=== PATIENT | female | born 1970 | race Caucasian/White ===

== ENCOUNTER 2016-10-29 07:57 | Emergency (ER) | payer OTHER ==
[2016-10-29] MEDS ORDERED: CEPHALEXIN 250 MG CAPSULE PO STA (08:47)
--- NOTE | 2016-10-29 08:49 | ED Physician Documentation ---
PD HPI UPPER EXT INJURY - Stated complaint Stated Complaint: R PALM BLISTER,RADIATING PAIN UP R ARM - Chief complaint Chief Complaint: Ext Problem - History obtained from History obtained from: Patient - History of Present Illness Location: Right, Hand Type of injury: Other (unknown) Where injury occurred: Home Timing - onset: How many days ago (4) Timing - details: Gradual onset Worsened by: Moving, Palpating Associated symptoms: Swelling, Discolored Similar symptoms before: Has not had sx before - Additonal information Additional information: The patient is a 46-year-old female who presents with swelling, blister on the palm of her right hand at the thenar eminence. It started 4 days ago after working in her garden. She has unroofed the blister, but presents now because of continued pain and swelling, and right axillary adenopathy. She is right- hand dominant. She denies fever, cough or shortness of breath. She denies history of similar symptoms in the past. Her vaccinations are up-to-date. Past history is significant for fibromyalgia. Review of Systems Constitutional: denies: Fever Nose: denies: Congestion Throat: denies: Sore throat Cardiac: denies: Chest pain / pressure Respiratory: denies: Dyspnea, Cough GI: denies: Abdominal Pain, Nausea, Vomiting Skin: reports: Other (Swollen, tender, blistered area right palm.) Neurologic: denies: Focal weakness, Numbness, Headache PD PAST MEDICAL HISTORY - Past Medical History Past Medical History: Yes Cardiovascular: None Respiratory: None Neuro: None Endocrine/Autoimmune: None Musculoskeletal: Fibromyalgia - Present Medications Home Medications: Ambulatory Orders Medication Instructions Recorded Confirmed Cephalexin 500 mg PO TID #20 tablet 10/29/16 - Allergies Allergies/Adverse Reactions: Allergies Allergy/AdvReac Type Severity Reaction Status Date / Time latex Allergy Hives Verified 10/29/16 08:11 Penicillins Allergy Hives Verified 10/29/16 08:11 Sulfa (Sulfonamide Allergy Edema Verified 10/29/16 08:11 Antibiotics) gluten AdvReac Nausea Verified 10/29/16 08:11 lactase [From Dairy Aid] AdvReac Nausea Verified 10/29/16 08:11 lactose AdvReac Nausea Verified 10/29/16 08:11 - Social History Does the pt smoke?: No Smoking Status: Never smoker PD ED PE NORMAL - Vitals Vital signs reviewed: Yes (Normal) - General General: Alert and oriented X 3, Well developed/nourished - HEENT HEENT: Atraumatic - Cardiac Cardiac: RRR, No murmur - Respiratory Respiratory: No respiratory distress, Clear bilaterally - Abdomen Abdomen: Soft, Non tender - Derm Derm: No rash - Extremities Extremities: Other (There is a 1 cm diameter area of swelling with faint erythema on the palmar side of the right hand, over the thenar eminence. There is a central blister that has been unroofed. There is associated tenderness to palpation. There is no lymphangitic streaking. Right axillary lymph nodes are mildly enlarged, and mildly tender to palpation.) - Neuro Neuro: Alert and oriented X 3, No motor deficit, No sensory deficit Results - Vitals Vitals: Vital Signs - 24 hr // 08:03 Temperature 36.5 C Heart Rate 58 L Respiratory 16 Rate Blood Pressure 121/66 O2 Saturation 100 Oxygen O2 Source Room air PD MEDICAL DECISION MAKING - ED course Complexity details: considered differential, d/w patient, d/w family ED course: The patient's presentation is most consistent with cellulitis of the right hand. It is uncertain the initial cause of her injury. It may have been a thorn that penetrated her skin, or it may have been nettle blister that became secondarily infected. There is no evidence of foreign body currently. Treatment in the emergency department included administration of cephalexin 500 mg orally. She is being discharged with prescription for cephalexin. She will take probiotic while on the antibiotic therapy. I discussed with her the expected course of injury, treatment and outpatient follow-up, as well as potentially worrisome signs or symptoms that should prompt reevaluation in the emergency department. Departure - Departure Disposition: 01 Home, Self Care Clinical Impression: Cellulitis Qualifiers: Site of cellulitis: extremity Site of cellulitis of extremity: upper extremity Laterality: right Qualified Code(s): L03.113 - Cellulitis of right upper limb Condition: Stable Instructions: ED Infec Skin Cellulitis Follow-Up: ROMAN Weber [Provider Group] Prescriptions: Cephalexin 500 mg PO TID #20 tablet Comments: Keep your right hand elevated as much of the time as possible. Take cephalexin 3 times daily as prescribed. Take probiotic while on antibiotic therapy. Follow-up with primary physician within 1 week. Call to schedule appointment. Return to the emergency department if you develop increasing redness, swelling, or tenderness of the infected site, or otherwise worsening symptoms.
[2016-10-29] MEDS ORDERED: CEPHALEXIN 250 MG CAPSULE PO ONE (08:53)
[2016-10-29 09:23] VITALS: BP 128/76
== END 2016-10-29 09:24 | disposition home or self-care (01) ==
LOC: ED 07:57
DX: L03.113 Cellulitis of right upper limb (principal)
CPT/HCPCS: 99283; A9270

== ENCOUNTER 2016-10-31 00:43 | Emergency (ER) | payer OTHER ==
--- NOTE | 2016-10-31 00:58 | ED Physician Documentation ---
PD HPI UPPER EXT INJURY - Stated complaint Stated Complaint: RT HAND WOUND,PAIN - History obtained from History obtained from: Patient - History of Present Illness Location: Right, Hand (thenar area) Type of injury: Other (started with red spot and then it got bigger with blistering and is very painful. Seen in ED 2 days ago with Rx for Keflex, but is getting slightly larger. Mild drainage. Had been doing some gardening, but not aware of abrasion/lac per se.). No: Laceration, Puncture wound Timing - onset: How many days ago (few) Timing - duration: Days (few) Timing - details: Gradual onset, Still present Associated symptoms: Swelling. No: Weakness, Numbness, Tingling Similar symptoms before: Has not had sx before Recently seen: Emergency Dept (2 days ago) Review of Systems Constitutional: denies: Fever, Chills Throat: denies: Oral lesions / sores GI: denies: Nausea, Vomiting PD PAST MEDICAL HISTORY - Past Medical History Cardiovascular: None Respiratory: None Neuro: None Endocrine/Autoimmune: None Musculoskeletal: Fibromyalgia - Present Medications Home Medications: Ambulatory Orders Medication Instructions Recorded Confirmed Cephalexin 500 mg PO TID #20 tablet 10/29/16 Doxycycline Hyclate 100 mg PO BID #14 tablet 10/31/16 - Allergies Allergies/Adverse Reactions: Allergies Allergy/AdvReac Type Severity Reaction Status Date / Time latex Allergy Hives Verified 10/31/16 01:01 Penicillins Allergy Hives Verified 10/31/16 01:01 Sulfa (Sulfonamide Allergy Edema Verified 10/31/16 01:01 Antibiotics) gluten AdvReac Nausea Verified 10/31/16 01:01 lactase [From Dairy Aid] AdvReac Nausea Verified 10/31/16 01:01 lactose AdvReac Nausea Verified 10/31/16 01:01 - Social History Does the pt smoke?: No Smoking Status: Never smoker PD ED PE NORMAL - Vitals Vital signs reviewed: Yes - General General: Alert and oriented X 3, Well developed/nourished, Other (seems in pain from hand and also anxious about it. Slightly tearful. ) - HEENT HEENT: Pharynx benign - Neck Neck: Supple, no meningeal sign - Derm Derm: Normal color, Warm and dry, Other (right thenar part of hand with rounded rash with superficial blistering, very tender. Bedside U/S without fluid underneath. No proximal streaking. Does have small adenopathy in axilla. ) Results - Vitals Vitals: Oxygen O2 Source Room air PD MEDICAL DECISION MAKING - ED course Complexity details: considered differential (local small blistered rash, likely staph. Consider herpetic but unusual location. Not improved with Keflex. Will add Doxy (allergic to sulfa). She is anxious here but took med and stayed awhile to ensure no obvious allergic reaction. ), d/w patient Departure - Departure Disposition: 01 Home, Self Care Clinical Impression: Infected hand Condition: Stable Record reviewed to determine appropriate education?: Yes Prescriptions: Doxycycline Hyclate 100 mg PO BID #14 tablet Comments: Continue the cephalexin. Add doxycycline to improve coverage of other types of germs. Warm soaks of the hand 2-3 times a day. Recheck if not improved over the next couple of days. Tylenol or ibuprofen if needed for pain. Discharge Date/Time: 10/31/16 02:15
[2016-10-31 01:01] VITALS: BP 137/80
[2016-10-31] MEDS ORDERED: DOXYCYCLINE 100 MG TABLET PO STA (01:10)
[2016-10-31] MEDS ORDERED: DOXYCYCLINE 100 MG TABLET PO ONE (01:31)
== END 2016-10-31 02:15 | disposition home or self-care (01) ==
LOC: ED 00:43
DX: L08.9 Local infection of the skin and subcutaneous tissue, unspecified (principal); M79.7 Fibromyalgia
CPT/HCPCS: 99283; A9270

== ENCOUNTER 2016-11-03 15:59 | Emergency (ER) | payer OTHER ==
--- NOTE | 2016-11-03 20:12 | ED Physician Documentation ---
PD HPI SKIN - Stated complaint Stated Complaint: RIGHT ARM PX - Chief complaint Chief Complaint: Ext Problem - History obtained from History obtained from: Patient, Family - History of Present Illness Timing - onset: How many days ago (3) Timing - details: Gradual onset, Still present Location: RUE Quality / character: Painful, Vesicular Associated symptoms: No: Fever, Myalgias Contributing factors: Unknown Similar symptoms before: Work up / diagnostics Recently seen: Emergency Dept - Additional information Additional information: Patient is a 46 year old female with no significant past medical history who is presenting to the emergency department for a skin rash. Patient states that she had a smaller rash on her hand a few days ago. she went to another er and was started on keflex. Patient states that another rash developed on her arm with multiple lesions so she came back for evaluation. Review of Systems Constitutional: denies: Fever, Chills Eyes: denies: Decreased vision, Photophobia Ears: denies: Ear pain, Drainage/discharge Nose: denies: Congestion Throat: denies: Sore throat Respiratory: denies: Dyspnea, Cough GI: reports: Nausea, Constipation. denies: Vomiting, Diarrhea : denies: Dysuria, Frequency Skin: reports: Rash, Lesions Musculoskeletal: reports: Extremity pain, Extremity swelling. 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 : None HEENT: None Psych: Anxiety Musculoskeletal: Fibromyalgia - Past Surgical History Past Surgical History: No - Present Medications Home Medications: Ambulatory Orders Medication Instructions Recorded Confirmed Cephalexin 500 mg PO TID #20 tablet 10/29/16 11/03/16 Doxycycline Hyclate 100 mg PO BID #14 tablet 10/31/16 11/03/16 Gabapentin 300 mg PO Q8HR #15 capsule 11/03/16 Valacyclovir HCl [Valacyclovir] 1,000 mg PO TID #21 tablet 11/03/16 - Allergies Allergies/Adverse Reactions: Allergies Allergy/AdvReac Type Severity Reaction Status Date / Time amoxicillin Allergy Unknown Verified 11/03/16 16:19 latex Allergy Hives Verified 11/03/16 16:19 Penicillins Allergy Hives Verified 11/03/16 16:19 Sulfa (Sulfonamide Allergy Edema Verified 11/03/16 16:19 Antibiotics) gluten AdvReac Nausea Verified 11/03/16 16:19 lactase [From Dairy Aid] AdvReac Nausea Verified 11/03/16 16:19 lactose AdvReac Nausea Verified 11/03/16 16:19 - Social History Does the pt smoke?: No Smoking Status: Never smoker Does the pt drink ETOH?: No Does the pt have substance abuse?: No - Immunizations Immunizations are current?: Yes - POLST Patient has POLST: No PD ED PE NORMAL - Vitals Vital signs reviewed: Yes - General General: Alert and oriented X 3, No acute distress - HEENT HEENT: Atraumatic - Neck Neck: Supple, no meningeal sign - Cardiac Cardiac: RRR, No murmur - Respiratory Respiratory: No respiratory distress - Abdomen Abdomen: Soft, Non tender, Non distended - Neuro Neuro: Alert and oriented X 3, No motor deficit, No sensory deficit, Normal speech - Psych Psych: Normal mood PD ED PE EXPANDED - Extremities Extremities: Right arm (vesicular rash on medial right upper extremity, no superimposed infection appreciated. ) Results - Vitals Vitals: Vital Signs - 24 hr 11/03/16 11/03/16 16:13 20:30 Temperature 36.3 C L 37.0 C Heart Rate 61 58 L Respiratory 16 18 Rate Blood Pressure 132/79 H 117/79 O2 Saturation 59 L 100 Oxygen O2 Source Room air PD MEDICAL DECISION MAKING - ED course Complexity details: reviewed old records, considered differential, d/w patient ED course: Patient was seen and examined at bedside. patient's findings were consistent with shingles. Patient was started on acyclovir. Patient stated that she did not want any other pain meds at this time. Patient required no further work up and was stable for discharge with outpatient follow up. Departure - Departure Disposition: 01 Home, Self Care Clinical Impression: Shingles outbreak Condition: Good Instructions: ED Shingles Follow-Up: primary,care provider [Other] - Within 3 Days Prescriptions: Gabapentin 300 mg PO Q8HR #15 capsule Valacyclovir HCl [Valacyclovir] 1,000 mg PO TID #21 tablet Comments: Your symptoms today are being caused by shingles. You will have your first dose of antiviral today and will need to take it for the next week. You can take, motrin, tylenol or gabapentin for pain. You should follow up with your doctor this week. you can take cem for nausea, and probiotics due to your recent antibiotic use. You may return to the emergency department at any time for new, worsening or uncontrollable symptoms. Discharge Date/Time: 11/03/16 20:30
[2016-11-03] MEDS: valACYclovir 500 MG TABLET PO STA (20:15)
[2016-11-03] MEDS ORDERED: valACYclovir 500 MG TABLET ONE (20:17)
[2016-11-03 20:31] VITALS: BP 117/79
== END 2016-11-03 20:30 | disposition home or self-care (01) ==
LOC: ED 15:59
DX: B02.9 Zoster without complications (principal)
CPT/HCPCS: 99283; A9270

== ENCOUNTER 2023-11-03 08:24 | Emergency (ER) | payer BC, OTHER ==
[2023-11-03 08:46] VITALS: O2SAT 99
[2023-11-03] MEDS: LORazepam 0.5 MG TABLET PO STA ×2 (09:12→10:13)
--- NOTE | 2023-11-03 09:33 | ED Physician Documentation ---
History of Present Illness - Stated complaint Stated Complaint: SOA,NUMBNESS,GEN WEAKNESS, C+ - Chief complaint Chief Complaint: General - History obtained from History obtained from: Patient - History of Present Illness Timing: Today Pain level max: 7 Pain level now: 7 - Additonal information Additional information: 53-year-old female presents to the emergency department stating that she took a COVID test this morning and it was positive and since that time she has been hyperventilating, unable to control her breathing and having spasms in her hands and feet. She states that she does not have a history of anxiety but does have a history of fibromyalgia. She is not on any medications at home. She states that she uses Tylenol as needed for pain. No fevers. No chills. Mild cough. 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 HEENT: None Psych: Anxiety Musculoskeletal: Fibromyalgia - Past Surgical History Past Surgical History: No - Present Medications Home Medications: Ambulatory Orders Medication Instructions Recorded Confirmed No Known Home Medications 11/03/23 11/03/23 - Allergies Allergies/Adverse Reactions: Allergies Allergy/AdvReac Type Severity Reaction Status Date / Time amoxicillin Allergy Unknown Verified 11/03/16 16:19 egg Allergy Nausea Verified 11/03/23 08:34 latex Allergy Hives Verified 11/03/16 16:19 Penicillins Allergy Hives Verified 11/03/16 16:19 Sulfa (Sulfonamide Allergy Edema Verified 11/03/16 16:19 Antibiotics) gluten AdvReac Nausea Verified 11/03/16 16:19 lactase [From Dairy Aid] AdvReac Nausea Verified 11/03/16 16:19 lactose AdvReac Nausea Verified 11/03/16 16:19 - Social History Does the pt smoke?: No Smoking Status: Never smoker Does the pt drink ETOH?: No Does the pt have substance abuse?: No - Immunizations Immunizations are current?: Yes - POLST Patient has POLST: No PD ED PE NORMAL - Vitals Vital signs reviewed: Yes - General General: Alert and oriented X 3, Other (Patient is hyperventilating, carpopedal spasms present.) - HEENT HEENT: PERRL - Neck Neck: Supple, no meningeal sign - Cardiac Cardiac: RRR, Strong equal pulses - Respiratory Respiratory: No respiratory distress, Clear bilaterally - Abdomen Abdomen: Soft, Non tender, Non distended - Derm Derm: Warm and dry - Extremities Extremities: No edema, No calf tenderness / cord - Neuro Neuro: Alert and oriented X 3 - Psych Psych: Normal mood, Normal affect Results - Vitals Vitals: Vital Signs - 24 hr 11/03/23 11/03/23 11/03/23 08:30 10:34 11:50 Temperature 37.4 C 37.5 C Heart Rate 56 L 65 67 Respiratory 30 H 15 14 Rate Blood Pressure 151/81 H 121/67 108/61 O2 Saturation 99 99 99 Oxygen O2 Source Room air PD Medical Decision Making - ED course Complexity details: re-evaluated patient, considered differential, d/w patient ED course: Patient presents to the emergency department with hyperventilation and carpopedal spasms. She was given Ativan. Symptoms resolved. She was also given Tylenol for the body aches. She has no hypoxia or respiratory distress. Lungs are clear to auscultation bilaterally. Does not have risk factors for severe COVID. Patient is well-appearing, nontoxic. Ambulating without difficulty. We will continue supportive care for the COVID and have her follow- up with her doctor. Patient counseled regarding signs and symptoms for which I believe and urgent re-evaluation would be necessary. Patient with good understanding of and agreement to plan and is comfortable going home at this time This document was made in part using voice recognition software. While efforts are made to proofread this document, sound alike and grammatical errors may occur. Departure - Departure Disposition: 01 Home, Self Care Clinical Impression: COVID, Hyperventilation Condition: Good Instructions: ED Hyperventilation Syndrome, ED Viral Syndrome Follow-Up: your,doctor in 1 week [Other] Comments: You had an episode of hyperventilation today, causing carpal pedal spasms. This resolved with the Ativan. You did test positive for COVID this morning, it is recommended that you take Tylenol or Motrin at home as needed for body aches. Please return if you worsen. Forms: PCP List Discharge Date/Time: 11/03/23 11:53
[2023-11-03] MEDS: ACETAMINOPHEN 325 MG TABLET PO STA (11:11)
[2023-11-03 12:12] VITALS: BP 108/61
== END 2023-11-03 11:53 | disposition home or self-care (01) ==
LOC: ED 08:24
DX: U07.1 COVID-19 (principal); R06.4 Hyperventilation; Z91.040 Latex allergy status
CPT/HCPCS: 99283; A9270

== ENCOUNTER 2023-12-04 00:18 | Outpatient (CLI) | payer BC, OTHER | END 2023-12-04 00:19 | disposition short-term general hospital (02) | LOC: EMS 00:18 | DX: R55 Syncope and collapse (principal); R61 Generalized hyperhidrosis; R11.2 Nausea with vomiting, unspecified | CPT/HCPCS: A0425; A0429 ==